=== PATIENT | male | born 1930 | race Hispanic/Latino ===

== ENCOUNTER 2017-08-03 09:05 | Outpatient (CLI) | payer MEDICARE, MEDICAID ==
--- NOTE | 2017-08-03 10:43 | CT ---
CT OF BRAIN PERFORMED WITHOUT CONTRAST ENHANCEMENT: History Followup subdural hematoma. COMPARISON: An 06/20/17 study. FINDINGS: There is generalized ventricular and sulcal prominence. The bilateral chronic-appearing subdural fl uid collections have decreased in size as compared to the prior exam. Bilateral nano holes are agai n noted. No signs of any acute bleed. IMPRESSION: 1. Moderate atrophy. 2. Interval decrease in size of the chronic-appearing bilateral subdural hematomas. POS: [facility]
== END 2017-08-03 09:06 | disposition home or self-care (01) ==
LOC: TBSIIMAG 09:05
PROVIDERS: ATTEND Surgery
DX: I62.03 Nontraumatic chronic subdural hemorrhage (principal); G31.9 Degenerative disease of nervous system, unspecified
CPT/HCPCS: 70450

== ENCOUNTER 2017-12-14 12:49 | Emergency (ER) | payer MEDICARE, OTHER ==
[2017-12-14 13:24] LABS: #Basophils 0.1 thou/uL (0.0-0.2); #Eosinphils 0.1 thou/uL (0.0-0.7); #Lymphocytes 1.7 thou/uL (1.20-3.40); #Monocytes 0.8 thou/uL (0.11-0.59); #Neutrophils 9.5 thou/uL (1.40-6.50); %Basophils 0.7 % (0.0-1.0); %Eosinophils 0.7 % (0.0-10.0); %Lymphocytes 13.8 % (21.0-51.0); %Monocytes 6.3 % (0.0-10.0); %Neutrophils 78.5 % (42.0-75.0); Mean Corpuscular HGB CONC 31.4 g/dL (32.0-36.0); Mean Corpuscular Hemoglobin 28.6 pg (27.0-31.0); Mean Corpuscular Volume 91.1 fl (80.0-94.0); Mean Platelet Volume 6.6 fL (7.4-10.4); Platelet Count 377 thou/uL (130-400); RBC Distribution Width 14.3 % (11.5-14.5); Red Blood Cell (RBC) Count 3.86 mill/uL (4.70-6.10); White Blood Cell (WBC) Count 12.1 thou/uL (4.8-10.8)
[2017-12-14 13:50] LABS: ALT (SGPT) Less than 7 U/L (8-55); AST (SGOT) 10 U/L (5-34); Albumin 3.7 g/dL (3.4-4.8); Alkaline Phosphatase 75 U/L (40-150); Anion Gap 11 mmol/L (10-20); BUN (Urea Nitrogen) 31 mg/dL (8.4-25.7); Bilirubin, Total 0.4 mg/dL (0.2-1.2); Calc. Creatinine Clearance 0 mL/min (70-130); Calcium 8.9 mg/dL (7.8-10.44); Carbon Dioxide 26 mmol/L (23-31); Chloride 101 mmol/L (98-107); Estimated GFR-MDRD 82; Globulin 3.3 g/dL (2.4-3.5); Glucose 118 mg/dL (83-110); Potassium 3.8 mmol/L (3.5-5.1); Sodium 134 mmol/L (136-145)
--- NOTE | 2017-12-14 14:33 | RAD ---
PORTABLE CHEST 1 VIEW: Date: 12/14/17 Time: 1418 hours HISTORY: Neck pain, not feeling well. FINDINGS: Comparison made with exam of 06/05/17. The heart size is normal. The aorta is tortuous. Lungs are well expanded with stable chronic changes. No confluent areas of consolidation, pneumothorax, carol pulmonary edema, or large effusions are see n. There are degenerative changes in the spine and shoulder joints. IMPRESSION: No acute process. POS: [facility]
--- NOTE | 2017-12-14 16:36 | CT ---
CT BRAIN WITHOUT CONTRAST 12/14/17 HISTORY: Headache. FINDINGS: Comparison made with exam of 08/01/17. Cortical atrophy and ventricular size is stable. The chronic bilateral subdural fluid collections are also stable. No evidence of acute infarct, hemorrhage or midline shift is seen. Bilateral nano holes are again noted. No acute osseous abnormalities are seen. the visualized paranasal sinuses are well aerated. IMPRESSION: No CT evidence of acute intracranial process. POS: [facility]
[2017-12-14 17:47] LABS: Bilirubin Negative (Negative); Blood, Urine Moderate (Negative); Glucose, Urine (Dipstick) Negative (Negative); Leukocyte Moderate (Negative); Nitrite Negative (Negative); Protein, Urine (Dipstick) 100 mg/dL (Neg-Trace); Specific Gravity, Urine 1.015 (1.005-1.030); Urobilinogen 0.2 mg/dL (0.2-1.0); pH, Urine 8.5 (5.0-9.0)
[2017-12-14 17:49] LABS: Clarity Cloudy (Clear)
[2017-12-14 17:52] LABS: Bacteria/HPF 4+ HPF (None Seen); Hyaline Casts/LPF 0-3 HYALINE CAST LPF (0-3 Hyaline); Pathc Cast-AUWi Flag 0.56 (0-2.49); RBC/HPF GREATER THAN 50-TNTC HPF (0-3); Squamous Epithelial 0-3 HPF (0-3)
== END 2017-12-14 18:04 | disposition home or self-care (01) ==
LOC: ERS 12:49
DX: M79.81 Nontraumatic hematoma of soft tissue (principal); D64.9 Anemia, unspecified; D72.829 Elevated white blood cell count, unspecified; R53.1 Weakness
CPT/HCPCS: 36415; 70450; 71045; 80053; 81003; 81015; 85025; 87077; 87086; 87186; 93005

== ENCOUNTER 2018-02-11 15:39 | Outpatient (CLI) | payer MEDICARE, OTHER ==
--- NOTE | 2018-02-11 16:53 | CT ---
CT BRAIN WITHOUT CONTRAST: INDICATIONS: Follow up subdural hematomas. COMPARISON: 12/14/2017 FINDINGS: The chronic appearing subdural hematomas overlying the frontal and parietal convexities are largely s table. The generalized cerebral and cerebellar atrophy is similar. 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 The bilateral mass effusions are stable. The paranasal sinuses are clear. The skull is intact. IMPRESSION: 1. Bilateral chronic appearing subdural hematomas are similar to the most recent comparison dated . 2. No midline shift or acute infarct demonstrated. No hydrocephalus is noted. 3. Bilateral bur holes within the frontal and parietal skulls appear similar. 4. Stable bilateral mastoid effusion. POS: [facility]
== END 2018-02-11 15:40 | disposition home or self-care (01) ==
LOC: TBSIIMAG 15:39
PROVIDERS: ATTEND Surgery
DX: I62.03 Nontraumatic chronic subdural hemorrhage (principal)
CPT/HCPCS: 70450

== ENCOUNTER 2018-05-09 11:51 | Emergency (ER) | payer MEDICARE, OTHER ==
[2018-05-09 12:31] LABS: #Basophils 0.1 thou/uL (0.0-0.2); #Lymphocytes 0.7 thou/uL (1.20-3.40); #Monocytes 0.9 thou/uL (0.11-0.59); #Neutrophils 10.8 thou/uL (1.40-6.50); %Basophils 0.8 % (0.0-1.0); %Eosinophils 0.3 % (0.0-10.0); %Lymphocytes 5.8 % (21.0-51.0); %Neutrophils 86.2 % (42.0-75.0); Hemoglobin 11.8 g/dL (14.0-18.0); Mean Corpuscular HGB CONC 30.5 g/dL (32.0-36.0); Mean Corpuscular Hemoglobin 26.8 pg (27.0-31.0); Mean Corpuscular Volume 87.9 fL (78.0-98.0); Mean Platelet Volume 6.7 fL (7.4-10.4); Platelet Count 392 thou/uL (130-400); RBC Distribution Width 16.2 % (11.5-14.5); White Blood Cell (WBC) Count 12.5 thou/uL (4.8-10.8)
[2018-05-09 12:55] LABS: ALT (SGPT) 13 U/L (8-55); AST (SGOT) 16 U/L (5-34); Alkaline Phosphatase 77 U/L (40-150); Anion Gap 15 mmol/L (10-20); BUN (Urea Nitrogen) 31 mg/dL (8.4-25.7); Bilirubin, Total 0.9 mg/dL (0.2-1.2); Calc. Creatinine Clearance 0 mL/min (70-130); Calcium 9.7 mg/dL (7.8-10.44); Carbon Dioxide 24 mmol/L (23-31); Chloride 103 mmol/L (98-107); Estimated GFR-MDRD 73; Globulin 3.5 g/dL (2.4-3.5); Glucose 105 mg/dL (83-110); Potassium 4.3 mmol/L (3.5-5.1); Protein, Total 7.5 g/dL (5.8-8.1); Sodium 138 mmol/L (136-145)
--- NOTE | 2018-05-09 14:04 | RAD ---
SINGLE VIEW OF THE PELVIS: Comparison: None. History: Fell last night when using the bathroom with right lower back pain. FINDINGS: Single view of the pelvis shows no evidence of acute fracture or dislocation. No degenerative change is seen in either hip. Vascular calcifications are seen. Moderate degenerative changes are seen in th e lumbar spine. IMPRESSION: No evidence of acute osseous abnormality. POS: [facility]
--- NOTE | 2018-05-09 14:05 | RAD ---
TWO VIEWS CHEST: Comparison: 03-06-14, 12-14-17 History: Neck pain and chest pain. Patient not feeling well. FINDINGS: Two views of the chest shows a normal sized cardiomediastinal silhouette. Increased interstitial jah ings are seen, right greater than left. There is no evidence of consolidation, mass, or pleural effus ion. IMPRESSION: No evidence of acute cardiopulmonary disease. POS: [facility]
--- NOTE | 2018-05-09 15:03 | RAD ---
RADIOGRAPH RIGHT RIBS THREE VIEWS: Date: 05-09-18 Time: 2:49 p.m. History: 87-year-old male with traumatic right rib pain after a fall. FINDINGS: There is diffuse osteopenia. There are mild angulations of the distal portions of the right 11th, 10t h, 9th, 8th, and 7th ribs. At least some, and possibly all, are old. No definite acute fracture is id entified, although the osteopenia decreases the sensitivity. There appears to be a meniscus at the [facility] posterior lung base, suggestive of a very small (based on lateral view of the 2 view chest radiog raph obtained earlier today) right pleural effusion. IMPRESSION: 1. Multiple minimally displaced, old, healed right distal lower rib fractures. 2. Osteopenia. 3. No obviously acute fracture identified. 4. Possible very small right pleural effusion. POS: [facility]
[2018-05-09 15:31] LABS: Bilirubin Negative (Negative); Blood, Urine Large (Negative); Clarity TURBID (Clear); Glucose, Urine (Dipstick) Negative (Negative); Leukocyte Large (Negative); Nitrite Positive (Negative); Protein, Urine (Dipstick) 300 mg/dL (Neg-Trace); Specific Gravity, Urine 1.013 (1.002-1.036)
[2018-05-09 15:33] LABS: Bacteria/HPF 2+ HPF (None Seen)
[2018-05-09 15:34] LABS: Pathc Cast-AUWi Flag 280.64 (0-2.49); Yeast-AUWi Flag 2991.2 (0-25.0)
[2018-05-09 15:37] LABS: Crystals/HPF 4+ AMORPH PHOS HPF (Negative); Hyaline Casts/LPF 0-3 HYALINE CAST LPF (0-3 Hyaline); RBC/HPF 21-50 HPF (0-3); Yeast-All Forms None Seen HPF (None Seen)
[2018-05-09] MEDS ORDERED: cefTRIAXone\\ROCEPHIN 1 GM VIAL ONE (16:08)
--- NOTE | 2018-05-11 14:24 | EKG ---
Test Reason : Blood Pressure : / mmHG Vent. Rate : 098 BPM Atrial Rate : 098 BPM P-R Int : 168 ms QRS Dur : 082 ms QT Int : 344 ms P-R-T Axes : 025 082 086 degrees QTc Int : 439 ms Sinus rhythm with occasional Premature ventricular complexes and Premature atrial complexes Nonspecific ST abnormality Abnormal ECG Confirmed by BORA CHAMBERS ([id number]), staff editor CLAIRE MART ([id number]) on 05/11/2018 2:24:23 PM Referred By: Confirmed By:BORA CHAMBERS
== END 2018-05-09 17:00 | disposition home or self-care (01) ==
LOC: ERS 11:51
DX: N39.0 Urinary tract infection, site not specified (principal); R07.89 Other chest pain; M25.551 Pain in right hip; N40.1 Benign prostatic hyperplasia with lower urinary tract symptoms; R33.8 Other retention of urine; Z87.891 Personal history of nicotine dependence; W01.0XXA Fall on same level from slipping, tripping and stumbling without subsequent striking against object, initial encounter; Y92.002 Bathroom of unspecified non-institutional (private) residence as the place of occurrence of the external cause
CPT/HCPCS: 36415; 51702; 71046; 72170; 80053; 81003; 81015; 85025; 87086; 93005; 96361; 96365; J0696